=== PATIENT | male | born 2005 | race Caucasian/White ===

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

== ENCOUNTER 2023-09-08 07:25 | Outpatient (CLI) | payer OTHER | END 2023-09-08 23:59 | disposition short-term general hospital (02) | LOC: EMS 07:25 | DX: R07.89 Other chest pain (principal); R20.0 Anesthesia of skin | CPT/HCPCS: A0425; A0429 ==